=== PATIENT | female | born 1960 | race Caucasian/White ===

== ENCOUNTER → 2023-07-01 14:50 | Outpatient (BNVA) | payer OTHER, SELFPAY | PROVIDERS: PCP Family Medicine; Visit Provider Nurse Practitioner Family | DX: R06.02 Shortness of breath (principal); R00.0 Tachycardia, unspecified; R91.8 Other nonspecific abnormal finding of lung field | CPT/HCPCS: 71046; 87400; 87426 ==

== ENCOUNTER → 2023-08-25 16:03 | Outpatient (BNVA) | payer OTHER, SELFPAY | PROVIDERS: PCP Family Medicine; Visit Provider Nurse Practitioner Family | DX: E87.6 Hypokalemia (principal) | CPT/HCPCS: 80048 ==

== ENCOUNTER → 2024-04-28 09:43 | Outpatient (BNVA) | payer OTHER, SELFPAY | PROVIDERS: PCP Family Medicine; Visit Provider Nurse Practitioner Family | DX: I50.9 Heart failure, unspecified (principal) | CPT/HCPCS: 80053; 80061 ==

== ENCOUNTER 2025-04-20 13:48 | Emergency (ER) | payer MEDICAID, SELFPAY ==
--- NOTE | 2025-04-20 13:53 | ECG_ITS ---
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 Measurements Intervals [place] Rate: 64 P: 0 MT: 136 QRS: -21 QRSD: 94 T: -80 QT: 377 QTc: 391 Interpretive Statements SINUS RHYTHM BORDERLINE LEFT AXIS DEVIATION [QRS AXIS < -20] LOW QRS VOLTAGE IN PRECORDIAL LEADS [QRS DEFLECTION < 1.0 mV IN CHEST LEADS] ST DEVIATION AND MODERATE T-WAVE ABNORMALITY, CONSIDER ANTEROLATERAL ISCHEMIA [-0.1+ mV T-WAVE IN V3-V6] ST DEVIATION AND MODERATE T-WAVE ABNORMALITY, CONSIDER INFERIOR ISCHEMIA [-0.1+ mV T-WAVE IN II/aVF] No previous ECG available for comparison Electronically Signed On 04-21-2025 08:54:23 CDT by Nagi Chavez M.D. [email or web address]
--- NOTE | 2025-04-20 13:53 | XRR_ITS ---
PROCEDURE INFORMATION: Exam: XR Chest Exam date and time: 04/20/2025 2:06 PM Age: 64 years old Clinical indication: Pain; Angina pectoris; Additional info: Cp TECHNIQUE: Imaging protocol: Radiologic exam of the chest. Views: 1 view. COMPARISON: CR XR chest 2V* [id number] 07/01/2023 3:02 PM FINDINGS: Lungs: Unremarkable. No consolidation. Pleural spaces: Unremarkable. No pleural effusion. No pneumothorax. Heart/Mediastinum: Unremarkable. No cardiomegaly. Bones/joints: Unremarkable. XR/XR chest 1V portable [id number] IMPRESSION: No acute findings.
[2025-04-20 13:56] VITALS: BP 132/74; PULSE 72; RESP 18; TEMP 36.7; O2SAT 97; BMI 28.4
[2025-04-20 15:01] LABS: Hematocrit 38.8 % (36-47); Hemoglobin 12.60 g/dL (11.27-16.99); Mean Corpuscular HGB Conc 32.5 g/dL (30-55); Mean Corpuscular Hemoglobin 30.2 pg (27-33); Mean Corpuscular Volume 93.0 fl (85-98); Nucleated Red Blood Cells % 0 %; Platelet Count 339 10^3/cmm (157-399); Red Blood Count 4.17 10^6/uL (3.85-5.65); White Blood Count 6.47 10^3/uL (3.29-11.43)
[2025-04-20 15:14] LABS: INR 0.96 (0.8-1.2); Prothrombin Time 13.40 SECONDS (12.1-14.9)
[2025-04-20 15:18] LABS: Troponin(5th) Baseline < 6 ng/L (0-10)
[2025-04-20 15:29] LABS: Alanine Aminotransferase 12 U/L (0-33); Albumin Level 4.2 g/dL (3.5-5.2); Alkaline Phosphatase 58 U/L (35-105); Anion Gap 16.1 (5-19); Aspartate Amino Transferase 14 U/L (0-32); Blood Urea Nitrogen 19 mg/dL (8-23); Calcium 10.1 mg/dL (8.5-10.5); Carbon Dioxide 27 mmol/L (22-29); Chloride 100 mmol/L (98-107); Creatinine Clr Calc Pharmacy 87.6729; Globulin 2.2 g/dL (1.3-4.6); Glucose 99 mg/dL (65-115); Lipase 32 U/L (13-60); NT Pro B Type Natriuretic Pept 141 pg/mL (0-125); Osmolality Calculated 290 mOsm/kg (285-295); Potassium 4.1 mmol/L (3.5-5.1); Sodium 139 mmol/L (136-145); Total Protein 6.4 g/dL (6.6-8.7)
--- NOTE | 2025-04-20 15:37 | W.ED.CHESTPA ---
HPI - Chest Pain General: Chief Complaint: Chest Pain Stated Complaint: chest tight Time Seen by Provider: 04/20/25 15:14 Source: patient Mode of arrival: ambulatory Limitations: no limitations History of Present Illness: Patient is a nice 64-year-old female with a history of CHF and pulmonary emboli currently on Eliquis here for concerns of chest pain that began last week sometime. She states pain was intermittent but seem to progressively worsen until over the weekend. She states she began taking some leftover amoxicillin and this seemed to help her discomfort. She was seen by her primary care provider today and referred to the emergency department given her history of the pulmonary emboli. Patient states she has been compliant on her Eliquis. She has been on this medication for well over a year. Patient states she has received echocardiogram through her fire safety manager at [place] within the last year. EF was around 50% at that time. Patient is not complaining of weight gain or worsening leg swelling. She has no history of previous MIs or cardiac stenting. Patient not complaining of feeling short of breath. MD complaint: chest pain Onset (ago): day(s) Timing of current episode: episodic Onset: during rest Pain location: substernal Pain radiation: none Severity: mild Relieving factors: other (abx?) Exacerbating factors: nothing Context: history of DVT/PE Associated symptoms: Reports no associated symptoms; Deny abdominal pain, dyspnea, fever(s), nausea, palpitations, syncope or vomiting Treatment prior to arrival: none Risk Factors: Coronary artery disease risk factors: none Thoracic aortic dissection risk factors: none Related Data Home Medications ?Medication ?Instructions ?Recorded ?Confirmed apixaban 5 mg tablet (Eliquis) 5 mg PO BID 04/20/25 04/20/25 carvedilol 6.25 mg tablet 6.25 mg PO BID 04/20/25 04/20/25 furosemide 20 mg tablet 20 mg PO .QOD 04/20/25 04/20/25 lisinopril 5 mg tablet 5 mg PO DAILY 04/20/25 04/20/25 Previous Rx's ?Medication ?Instructions ?Recorded amoxicillin 500 mg-potassium 1 tab PO BID #1 tab 05/27/24 clavulanate 125 mg tablet (Augmentin) Allergies Allergy/AdvReac Type Severity Reaction Status Date / Time Sulfa (Sulfonamide Allergy Severe ALGY-Hives Verified 04/28/24 09:18 Antibiotics) Review of Systems Const: Reports: body aches; Denies: fever(s), chills, fatigue or malaise Card: Reports: chest pain; Denies: palpitations, irregular heart rhythm, edema, swelling of feet/ankles, lightheadedness, syncope, pre-syncope, dyspnea on exertion, orthopnea, leg pain with exertion or acrocyanosis Resp: Reports: pain on inspiration; Denies: dyspnea, productive cough, non-productive cough or chest congestion GI: Denies: abdominal pain, nausea, vomiting or diarrhea : Denies: flank pain, difficulty voiding, dysuria, urinary frequency, urinary urgency or urinary hesitancy Musc: Denies: neck pain, back pain, extremity pain, extremity swelling, joint pain or joint swelling Skin/Breast: Denies: rash Neuro: Denies: headache(s), numbness in extremities, weakness in extremities, sensory changes or dizziness PFSH ED PFSH: Family History Other Diabetes Denies family history of Dementia Cancer Social History Smoking and tobacco/nicotine status: never used tobacco/nicotine Alcohol intake: current Alcohol intake frequency: holidays/special occasions only Substance/Drug Use: current Substance/Drug use frequency: Special occassions/opportunity only Physical Exam Const: COMMON NORMALS: no acute distress, average body habitus, patient oriented x3, no limitations, healthy appearing, alert and well nourished GENERAL APPEARANCE: cooperative ORIENTATION/CONSCIOUSNESS: Yes awake, Yes oriented to person, Yes oriented to place and Yes oriented to time HENMT: COMMON NORMALS: normocephalic and atraumatic HEAD & SCALP: normal to inspection, normocephalic and atraumatic FACE & SINUS: normal facial exam and face symmetric Neck/C-Spine: COMMON NORMALS: full ROM, no lymphadenopathy, supple, no meningeal signs and no JVD Chest: COMMONS NORMALS: normal inspection of the chest and normal palpation of entire chest wall Resp: COMMON NORMALS: normal respiratory effort and clear to auscultation bilaterally AUSCULTATION: clear to auscultation bilaterally Cardio: COMMON NORMALS: no JVD, regular rate and regular rhythm RATE: regular rate RHYTHM: regular rhythm GI: COMMON NORMALS: Normal to inspection, nondistended, normoactive bowel sounds present, Soft to palpation, non-tender, No hepatosplenomegaly present and no masses PALPATION: Yes Soft to palpation and Yes No hepatosplenomegaly present : COMMON NORMALS: Yes no CVA tenderness BLADDER/KIDNEY EXAM: Yes no CVA tenderness Back/Pelvis: COMMON NORMALS: no CVA tenderness and thoracic and lumbar spine normal to inspection Extremity: COMMON NORMALS: normal to inspection, capillary refill normal, no clubbing, cyanosis or edema, no calf tenderness and no pedal edema GENERAL: Yes normal exam except as noted Neuro: COMMON NORMALS: patient oriented x3, moves all extremities, no focal motor deficits, no sensory deficits noted and gait normal SENSORIUM/ORIENTATION: Yes alert, Yes oriented to person, Yes oriented to place and Yes oriented to time MENINGEAL SIGNS: Yes no meningeal signs Skin: COMMON NORMALS: no rashes or lesions noted GENERAL SKIN EXAM: no rashes or lesions noted Course Vital Signs: Vital signs: Vital Signs Temperature 98.0 F 04/20/25 13:56 Pulse Rate 73 04/20/25 18:08 Respiratory Rate 17 04/20/25 17:30 Blood Pressure 114/63 04/20/25 18:08 Pulse Oximetry 96 04/20/25 18:08 Oxygen Delivery Me thod Room Air 04/20/25 17:30 MDM - Chest Pain Medical Decision Making Patient here with intermittent chest pain over the past several days. Symptoms were not exertional. She is not complaining of any degree of dyspnea. She is not tachycardic or hypoxic upon arrival. She does have a history of pulmonary emboli diagnosed over a year ago and has been compliant on her Eliquis since. I do not have any concern at this time for worsening clot burden or RV strain. Patient with normal stress testing on file from [facility] on 01/2024. These records were obtained and reviewed. Here she has a normal baseline troponin with a delta of 0. She is not having any significant discomfort here today. Her EKGs do show inverted T waves in her inferior and anterior lateral leads. These are new from EKG obtained from [facility] a year ago 04/2024. Case reviewed with Dr. To. Given her normal baseline and repeat troponins, nonsuspicious history, and normal recent cardiac stress testing he feels patient can most likely be discharged home with recommendations to follow-up with her fire safety manager. Return to ED precautions discussed. Medical Records I reviewed the patient's medical records. Lab Data I reviewed the patient's lab results. 04/20/25 14:39 04/20/25 14:39 Radiology Impressions Chest X-Ray 04/20/25 13:53 IMPRESSION: No acute findings. Laboratory Results WBC 6.47 10^3/uL (3.29-11.43) 04/20/25 14:39 RBC 4.17 10^6/uL (3.85-5.65) 04/20/25 14:39 Hgb 12.60 g/dL (11.27-16.99) 04/20/25 14:39 Hct 38.8 % (36-47) 04/20/25 14:39 MCV 93.0 fl (85-98) 04/20/25 14:39 MCH 30.2 pg (27-33) 04/20/25 14:39 MCHC 32.5 g/dL (30-55) 04/20/25 14:39 RDW 12.7 % (12.1-15.1) 04/20/25 14:39 Plt Count 339 10^3/cmm (157-399) 04/20/25 14:39 MPV 10.1 fL (7.4-10.4) 04/20/25 14:39 Neut % (Auto) 53.4 % 04/20/25 14:39 Lymph % (Auto) 37.6 % 04/20/25 14:39 [place] % (Auto) 5.3 % 04/20/25 14:39 Eos % (Auto) 2.9 % 04/20/25 14:39 Baso % (Auto) 0.6 % 04/20/25 14:39 Neut # (Auto) 3.46 10^3/uL (1.8-7.7) 04/20/25 14:39 Lymph # (Auto) 2.4 10^3/uL (0.8-4.8) 04/20/25 14:39 [place] # (Auto) 0.3 10^3/uL (0.2-0.9) 04/20/25 14:39 Eos # (Auto) 0.2 10^3/uL (0.0-0.8) 04/20/25 14:39 Baso # (Auto) 0.0 10^3/uL (0.0-0.1) 04/20/25 14:39 Nucleated RBC % (auto) 0 % 04/20/25 14:39 Nucleated RBCs # 0.0 /100WBC 04/20/25 14:39 PT 13.40 SECONDS (12.1-14.9) 04/20/25 14:39 INR 0.96 (0.8-1.2) 04/20/25 14:39 Sodium 139 mmol/L (136-145) 04/20/25 14:39 Potassium 4.1 mmol/L (3.5-5.1) 04/20/25 14:39 Chloride 100 mmol/L (98-107) 04/20/25 14:39 Carbon Dioxide 27 mmol/L (22-29) 04/20/25 14:39 Anion Gap 16.1 (5-19) 04/20/25 14:39 BUN 19 mg/dL (8-23) 04/20/25 14:39 Creatinine 0.7 mg/dL (0.5-0.9) 04/20/25 14:39 GFR Calculation 84.5 mL/min (90-130) L 04/20/25 14:39 Glucose 99 mg/dL (65-115) 04/20/25 14:39 Calculated Osmolality 290 mOsm/kg (285-295) 04/20/25 14:39 Calcium 10.1 mg/dL (8.5-10.5) 04/20/25 14:39 Total Bilirubin 0.2 mg/dL (0.15-1.2) 04/20/25 14:39 AST 14 U/L (0-32) 04/20/25 14:39 ALT 12 U/L (0-33) 04/20/25 14:39 Alkaline Phosphatase 58 U/L (35-105) 04/20/25 14:39 Troponin T Baseline < 6 ng/L (0-10) 04/20/25 14:39 Troponin T 120 Minute < 6.0 ng/L (0-10) 04/20/25 16:45 Delta Troponin T 0 ABS# (0-10) 04/20/25 16:45 NT-Pro-B Natriuret Pep 141 pg/mL (0-125) H 04/20/25 14:39 Total Protein 6.4 g/dL (6.6-8.7) L 04/20/25 14:39 Albumin 4.2 g/dL (3.5-5.2) 04/20/25 14:39 Globulin 2.2 g/dL (1.3-4.6) 04/20/25 14:39 Lipase 32 U/L (13-60) 04/20/25 14:39 All radiology interpretation(s) finalized by discharge Discharge Plan Discharge Patient Disposition: Home Clinical Impression: Chest pain Qualifiers: Chest pain type: unspecified Qualified Code(s): R07.9 - Chest pain, unspecified Condition: Stable Prescriptions: No Action amoxicillin-pot clavulanate [Augmentin] 500-125 mg tablet 1 tab PO BID Qty: 1 0RF carvedilol 6.25 mg tablet 6.25 mg PO BID lisinopril 5 mg tablet 5 mg PO DAILY furosemide 20 mg tablet 20 mg PO .QOD Eliquis 5 mg tablet 5 mg PO BID Discharge Orders: Discharge ED (Routine); Ordered 04/20/25 Ordered By: Bridget Carballo Referrals: Marian Eisenberg NP [Primary Care Provider, Family Practice] Patient Instructions: Patient Portal & [place] Instructions Activity Restrictions/Additional Instructions: As we discussed, I would like you to follow-up with your fire safety manager in the next week or 2 for your follow-up regarding your chest pain. You may return to the emergency department at any time for further concerns you may have. Print Language: Serbian Coding Level of Care Code ED Practice Lead for Ko Barba
--- NOTE | 2025-04-20 15:53 | ECG_ITS ---
[facility] Test Date: 2025-04-20 Pat Name: Sheila Mandel Department: Room: Gender: Female Shanker Out: : 1960 Requested By: Uriel To Order Number: [id number] Levon MD: Nagi Chavez M.D. Measurements Intervals [place] Rate: 64 P: 21 [place]: 166 QRS: -19 QRSD: 96 T: -57 QT: 414 QTc: 429 Interpretive Statements SINUS RHYTHM LOW QRS VOLTAGE IN PRECORDIAL LEADS [QRS DEFLECTION < 1.0 mV IN CHEST LEADS] POSSIBLE ANTERIOR MYOCARDIAL INFARCTION , OF INDETERMINATE AGE [30 ms Q WAVE IN V3/V4, OR R < 0.2 mV IN V4] MODERATE T-WAVE ABNORMALITY, CONSIDER LATERAL ISCHEMIA [-0.1+ mV T-WAVE IN I/aVL/V5/V6] MODERATE T-WAVE ABNORMALITY, CONSIDER INFERIOR ISCHEMIA [-0.1+ mV T-WAVE IN II/aVF] No previous ECG available for comparison Electronically Signed On 04-21-2025 09:30:24 CDT by Nagi Chavez M.D. [email or web address] [id number]
[2025-04-20 15:58] VITALS: BP 134/67; PULSE 66; RESP 16; O2SAT 95
[2025-04-20 16:30] VITALS: BP 116/64; PULSE 63; O2SAT 95
[2025-04-20 17:30] VITALS: BP 105/65; PULSE 60; RESP 17; O2SAT 94
[2025-04-20 17:37] LABS: Troponin 5 2HR < 6.0 ng/L (0-10); Troponin 5 2HR Delta 0 ABS# (0-10)
[2025-04-20 18:08] VITALS: BP 114/63; PULSE 73; O2SAT 96
== END 2025-04-20 18:10 | disposition home or self-care (01) ==
PROVIDERS: Emergency Medicine; Emergency Provider Physician Assistant; PCP Nurse Practitioner Family
DX: R07.9 Chest pain, unspecified (principal); Z79.01 Long term (current) use of anticoagulants
CPT/HCPCS: 36415; 71045; 80053; 83690; 83880; 84484; 85025; 85610; 93005; 99285